=== PATIENT | female | born 1945 | race Caucasian/White ===

== ENCOUNTER → 2016-09-01 | Outpatient (CLI) | payer OTHER | LOC: KOH-I 13:13 | DX: M81.0 Age-related osteoporosis without current pathological fracture (principal); M41.24 Other idiopathic scoliosis, thoracic region; M15.8 Other polyosteoarthritis; M85.852 Other specified disorders of bone density and structure, left thigh | CPT/HCPCS: 77080 ==

== ENCOUNTER → 2020-10-20 | Outpatient (CLI) | payer MEDICARE, OTHER | LOC: ECHO 09-17 12:00 → NM 09-17 13:00 → ECHO 08:05 | DX: I48.92 Unspecified atrial flutter (principal); I08.1 Rheumatic disorders of both mitral and tricuspid valves | CPT/HCPCS: ECHO; 93306 ==